=== PATIENT | female | born 1940 | race Asian ===

== ENCOUNTER 2016-10-30 04:55 | Emergency (ER) | payer MEDICARE, OTHER ==
[~2016-10-30 04:55] MED LIST: CALCIUM LACTAT650 MG PO; COLACE100 MG PO; FOSAMAX70 MG PO; IMO2 PO; NEURONTIN100 MG PO; NOR5 PO; NORCO1 TA2 PO; PRI20 PO; RANITIDINE HCL300 M2 PO; TERAZOSIN HCL2 MG PO; ZOF4 PO
[2016-10-30 08:23] LABS: microscopic required? YES; urine erythrocyte TRACE (NEGATIVE)
[2016-10-30 10:18] VITALS: BP 110/62
== END 2016-10-30 10:18 | disposition home or self-care (01) ==
LOC: ED 04:55
PROVIDERS: Emergency Medicine
DX: N39.0 Urinary tract infection, site not specified (principal); R05 Cough; I10 Essential (primary) hypertension; M54.5 Low back pain; E78.00 Pure hypercholesterolemia, unspecified
CPT/HCPCS: J0696

== ENCOUNTER 2016-11-10 00:27 | Emergency (ER) | payer MEDICARE, OTHER ==
[2016-11-10 01:09] LABS: CALCIUM 8.6 mg/dL (8.5-10.1); CARBON DIOXIDE 29.5 mmol/L (21-32); CHLORIDE SERUM 103 mmol/L (98-107); CREATININE SERUM 1.1 mg/dL (0.6-1.0); GLUCOSE SERUM 106 mg/dL (74-106); POTASSIUM SERUM 3.5 mmol/L (3.5-5.1); SODIUM SERUM 139 mmol/L (136-145)
[2016-11-10 01:13] LABS: ALBUMIN 3.7 g/dL (3.4-5.0); ALKALINE PHOSPHATASE 69 U/L (46-116); ALT/SGPT 32 U/L (14-59); AST/SGOT 33 U/L (15-37); BILIRUBIN TOTAL 0.2 mg/dL (0.20-1.00); LIPASE 148 IU/L (73-393); TOTAL PROTEIN, SERUM 8.2 g/dL (6.4-8.2)
[2016-11-10 01:20] LABS: microscopic required? YES; urine erythrocyte NEGATIVE (NEGATIVE)
[2016-11-10 01:40] LABS: PLATELET COUNT 327 x10^3mcL (130-400)
[2016-11-10 01:41] LABS: RED CELL DISTRIBUTION WIDTH 15.3 % (11.5-14.5)
[2016-11-10 05:32] VITALS: BP 122/60
== END 2016-11-10 05:33 | disposition home or self-care (01) ==
LOC: ED 00:27
PROVIDERS: Emergency Medicine
DX: N20.1 Calculus of ureter (principal); G89.29 Other chronic pain
CPT/HCPCS: Q0162

== ENCOUNTER 2017-04-17 23:40 | Emergency (ER) | payer MEDICARE, OTHER ==
[2017-04-18 02:43] LABS: BASOPHIL % 1.9 % (0-2); PLATELET COUNT 365 x10^3mcL (130-400)
[2017-04-18 02:53] LABS: RED CELL DISTRIBUTION WIDTH 15.6 % (11.5-14.5)
[2017-04-18 05:44] VITALS: BP 141/83
== END 2017-04-18 05:44 | disposition home or self-care (01) ==
LOC: ED 23:40
PROVIDERS: Emergency Medicine Emergency Medical Services
DX: K62.5 Hemorrhage of anus and rectum (principal); G89.29 Other chronic pain; M54.9 Dorsalgia, unspecified; I10 Essential (primary) hypertension
CPT/HCPCS: 36415